=== PATIENT | female | born 1980 | race American Indian/Alaskan Native ===

== ENCOUNTER 2017-08-22 05:44 | Emergency (ER) | payer MEDICAID ==
[2017-08-22 05:49] VITALS: BP 119/68
--- NOTE | 2017-08-22 06:19 | Emergency Department Report ---
ED General Adult HPI - General Chief complaint: Sore Throat Stated complaint: SORE THROAT,VOMITING,BACK PAIN Time Seen by Provider: 08/22/17 06:12 Source: patient Mode of arrival: Ambulatory Limitations: No Limitations - History of Present Illness Initial comments: Patient is a 37-year-old -[place] female who presents for sore throat 2 weeks , Secondary complaint of dysuria frequency urgency 2 weeks patient denies fever states 3 sick kids in house similar symptoms dysphagia 4/10 there is no ear pain no shortness of breath no stridor no vaginal discharge and abdominal pain no nausea vomiting patient denies sexual contact there is no concern for STD. Last menstrual cycle 3 weeks ago. Onset/Timin -: week(s) Location: mouth, neck Radiation: non-radiation Severity scale (0 -10): 4 Quality: burning, sharp Consistency: intermittent Improves with: none Worsens with: other (swallowing ) Associated Symptoms: diaphoresis. denies: cough, fever/chills, loss of appetite , nausea/vomiting, shortness of breath, syncope, weakness Treatments Prior to Arrival: none - Related Data Home Medications Medication Instructions Recorded Confirmed Last Taken Vits62/FA/Om3/Dha/Epa 1 tab PO DAILY 08/11/13 09/12/13 09/09/13 [[facility]] 1 Previous Rx's Medication Instructions Recorded Last Taken Type Ferrous Sulfate [Feosol 325 MG tab] 325 mg PO BID #60 tablet 09/12/13 Unknown Rx HYDROcodone/APAP 5-325 [Neon 1 each PO Q6HR PRN #30 tablet 09/12/13 Unknown Rx 5/325] Ytf106/Iron Fum/Folic/Docusate 1 each PO QDAY #30 tablet 09/12/13 Unknown Rx [ 19 Tablet] Phenazopyridine [Pyridium] 200 mg PO PC #6 tablet 06/11/14 Unknown Rx Sulfamethoxazole/Trimethoprim 1 each PO BID #14 tablet 06/11/14 Unknown Rx [Bactrim Ds] Ibuprofen [Motrin 800 MG tab] 800 mg PO Q8H PRN #30 tablet 07/26/14 Unknown Rx Benzocaine/Menth/Cetylpyrd 8 each MM Q2H PRN #3 packet 08/22/17 Unknown Rx [Cepacol X Strength] Ibuprofen 800 mg PO TID PRN #30 tablet 08/22/17 Unknown Rx Sulfamethoxazole/Trimethoprim 1 each PO BID #20 tablet 08/22/17 Unknown Rx [Bactrim DS TAB] Allergies Allergy/AdvReac Type Severity Reaction Status Date / Time No Known Allergies Allergy Verified 08/23/13 02:20 ED Review of Systems ROS: Stated complaint: SORE THROAT,VOMITING,BACK PAIN Other details as noted in HPI Constitutional: denies: chills, fever ENT: throat pain, congestion Respiratory: see HPI. denies: orthopnea, SOB with exertion, wheezing Cardiovascular: denies: chest pain, palpitations, syncope, paroxysmal nocturnal dyspnea Endocrine: no symptoms reported Gastrointestinal: denies: abdominal pain, nausea, vomiting, diarrhea Genitourinary: urgency, dysuria, frequency. denies: hematuria, discharge, abnormal menses, dyspareunia Musculoskeletal: denies: back pain, joint swelling, arthralgia, myalgia Skin: denies: rash, lesions Neurological: denies: headache, weakness, numbness, paresthesias, confusion, abnormal gait, vertigo Psychiatric: denies: anxiety, depression Hematological/Lymphatic: denies: easy bleeding, easy bruising ED Past Medical Hx - Past Medical History Previous Medical History?: No Hx Hypertension: No Hx Congestive Heart Failure: No Hx Diabetes: No Hx Deep Vein Thrombosis: No Hx Renal Disease: No Hx Sickle Cell Disease: No Hx Seizures: No Hx Asthma: No Hx COPD: No Hx HIV: No - Surgical History Past Surgical History?: Yes Additional Surgical History: right ankle surgery, x 2 - Social History Smoking Status: Never Smoker Substance Use Type: None - Medications Home Medications: Home Medications Medication Instructions Recorded Confirmed Last Taken Type Vits62/FA/Om3/Dha/Epa 1 tab PO DAILY 08/11/13 09/12/13 09/09/13 History [[facility]] 1 Ferrous Sulfate [Feosol 325 MG tab] 325 mg PO BID #60 tablet 09/12/13 Unknown Rx HYDROcodone/APAP 5-325 [Neon 1 each PO Q6HR PRN #30 tablet 09/12/13 Unknown Rx 5/325] Yaw364/Iron Fum/Folic/Docusate 1 each PO QDAY #30 tablet 09/12/13 Unknown Rx [ 19 Tablet] Phenazopyridine [Pyridium] 200 mg PO PC #6 tablet 06/11/14 Unknown Rx Sulfamethoxazole/Trimethoprim 1 each PO BID #14 tablet 06/11/14 Unknown Rx [Bactrim Ds] Ibuprofen [Motrin 800 MG tab] 800 mg PO Q8H PRN #30 tablet 07/26/14 Unknown Rx Benzocaine/Menth/Cetylpyrd 8 each MM Q2H PRN #3 packet 08/22/17 Unknown Rx [Cepacol X Strength] Ibuprofen 800 mg PO TID PRN #30 tablet 08/22/17 Unknown Rx Sulfamethoxazole/Trimethoprim 1 each PO BID #20 tablet 08/22/17 Unknown Rx [Bactrim DS TAB] ED Physical Exam - General Limitations: No Limitations General appearance: alert, in no apparent distress - Head Head exam: Present: atraumatic, normocephalic - Eye Eye exam: Present: normal appearance - ENT ENT exam: Present: mucous membranes moist, TM's normal bilaterally, normal external ear exam - Expanded ENT Exam Expanded Mouth exam: Absent: trismus Throat exam: Negative: tonsillar erythema, tonsillomegaly, tonsillar exudate, R peritonsillar mass, L peritonsillar mass - Neck Neck exam: Present: normal inspection, full ROM. Absent: tenderness, lymphadenopathy, thyromegaly - Respiratory Respiratory exam: Present: normal lung sounds bilaterally. Absent: respiratory distress - Cardiovascular Cardiovascular Exam: Present: regular rate, normal rhythm. Absent: systolic murmur, diastolic murmur, rubs, gallop - GI/Abdominal GI/Abdominal exam: Present: soft, normal bowel sounds. Absent: distended, tenderness, guarding, rebound, rigid, organomegaly, mass, bruit, pulsatile mass , hernia - Rectal Rectal exam: Present: deferred - Extremities Exam Extremities exam: Present: normal inspection - Back Exam Back exam: Present: normal inspection, full ROM. Absent: tenderness, CVA tenderness (R), CVA tenderness (L), muscle spasm, paraspinal tenderness, vertebral tenderness, rash noted - Neurological Exam Neurological exam: Present: alert, oriented X3, normal gait, reflexes normal - Psychiatric Psychiatric exam: Present: normal affect, normal mood - Skin Skin exam: Present: warm, dry, intact, normal color. Absent: rash ED Course Vital Signs 08/22/17 08/22/17 05:43 05:46 Temperature 98.9 F 98.9 F Pulse Rate 86 88 Respiratory 18 18 Rate Blood Pressure 119/68 119/68 O2 Sat by Pulse 100 100 Oximetry ED Medical Decision Making - Lab Data Laboratory Tests 08/22/17 08/22/17 06:00 Unknown Urine Color Yellow Urine Turbidity Clear Urine pH 5.0 Ur Specific [place] 1.023 Urine Protein <15 mg/dl Urine Glucose (UA) Neg Urine Ketones Neg Urine Blood Neg Urine Nitrite Pos Urine Bilirubin Neg Urine Urobilinogen < 2.0 Ur Leukocyte Esterase Mod Urine WBC (Auto) 84.0 H Urine RBC (Auto) 3.0 U Epithel Cells (Auto) 8.0 Urine Mucus 2+ Urine HCG, Qual Negative Group A Strep Rapid Negative - Medical Decision Making rapid strep negative will treat for URI, HCG: neg, UA: nitrates, luek, wbc, Plan: tx with Rx for : follow up with [facility] in 2-3 days , return to ed if symptoms worsen, pt verbalized agreement and understanding of discharge plan, will dc to home in stable condition with rx for bactrim DS, ibuprofen,at this time. Critical care attestation.: If time is entered above; I have spent that time in minutes in the direct care of this critically ill patient, excluding procedure time. ED Disposition Clinical Impression: UTI (urinary tract infection) Qualifiers: Urinary tract infection type: acute cystitis Hematuria presence: without hematuria Qualified Code(s): N30.00 - Acute cystitis without hematuria URI (upper respiratory infection) Qualifiers: URI type: unspecified viral URI Qualified Code(s): J06.9 - Acute upper respiratory infection, unspecified Disposition: DC-01 TO HOME OR SELFCARE Is pt being admited?: No Does the pt Need Aspirin: No Condition: Good Instructions: Urinary Tract Infection in Women (ED) Prescriptions: Benzocaine/Menth/Cetylpyrd [Cepacol X Strength] 8 each MM Q2H PRN #3 packet PRN Reason: throat pain Ibuprofen 800 mg PO TID PRN #30 tablet PRN Reason: pain / fever Sulfamethoxazole/Trimethoprim [Bactrim DS TAB] 1 each PO BID #20 tablet Referrals: [facility] [Outside] - 3-5 Days Forms: Work/School Release Form(ED) Time of Disposition: 07:13
[2017-08-22 07:05] LABS: Bilirubin,Urine NEG (Negative); Blood,Urine NEG (Negative); Color,Urine Yellow (Yellow); HCG Qualitative,Urine Negative (Negative); Mucus,Urine 2+ /HPF; Protein,Urine <15 mg/dL mg/dL (Negative); Urobilinogen,Urine < 2.0 mg/dL (<2.0)
== END 2017-08-22 07:21 | disposition home or self-care (01) ==
LOC: ED 05:44
DX: N30.00 Acute cystitis without hematuria (principal); J06.9 Acute upper respiratory infection, unspecified; Z79.899 Other long term (current) drug therapy
CPT/HCPCS: 81001; 81025; 87116; 87430; 99283

== ENCOUNTER 2017-10-20 11:46 | Emergency (ER) | payer MEDICAID, MEDICARE ==
[2017-10-20 11:56] VITALS: BP 121/79
--- NOTE | 2017-10-20 13:43 | Emergency Department Report ---
ED Neck Pain/Injury HPI - General Chief Complaint: Chest Pain Stated Complaint: LEFT SIDE PAIN Time Seen by Provider: 10/20/17 13:18 Mode of arrival: Ambulatory Limitations: No Limitations - History of Present Illness Initial Comments: Patient is 37 years old female with no significant past medical history. Patient presented to the ER complaining of left neck pain. Patient stated that started immediately after she wake up from sleep this morning. She stated that she is having difficulty turning her neck to the left side. Patient denied any chest pain, shortness of breath or back pain. MD Complaint: neck pain -: This morning - Related Data Home Medications Medication Instructions Recorded Confirmed Last Taken Vits62/FA/Om3/Dha/Epa 1 tab PO DAILY 08/11/13 09/12/13 09/09/13 [[facility]] 1 Previous Rx's Medication Instructions Recorded Last Taken Type Ferrous Sulfate [Feosol 325 MG tab] 325 mg PO BID #60 tablet 09/12/13 Unknown Rx HYDROcodone/APAP 5-325 [[place] 1 each PO Q6HR PRN #30 tablet 09/12/13 Unknown Rx 5/325] Laj862/Iron Fum/Folic/Docusate 1 each PO QDAY #30 tablet 09/12/13 Unknown Rx [ 19 Tablet] Phenazopyridine [Pyridium] 200 mg PO PC #6 tablet 06/11/14 Unknown Rx Sulfamethoxazole/Trimethoprim 1 each PO BID #14 tablet 06/11/14 Unknown Rx [Bactrim Ds] Ibuprofen [Motrin 800 MG tab] 800 mg PO Q8H PRN #30 tablet 07/26/14 Unknown Rx Benzocaine/Menth/Cetylpyrd 8 each MM Q2H PRN #3 packet 08/22/17 Unknown Rx [Cepacol X Strength] Ibuprofen 800 mg PO TID PRN #30 tablet 08/22/17 Unknown Rx Sulfamethoxazole/Trimethoprim 1 each PO BID #20 tablet 08/22/17 Unknown Rx [Bactrim DS TAB] Allergies Allergy/AdvReac Type Severity Reaction Status Date / Time No Known Allergies Allergy Verified 08/23/13 02:20 ED Review of Systems ROS: Stated complaint: LEFT SIDE PAIN Other details as noted in HPI Comment: All other systems reviewed and negative Constitutional: denies: chills, fever Cardiovascular: denies: chest pain, palpitations, dyspnea on exertion Gastrointestinal: denies: abdominal pain, nausea, vomiting Musculoskeletal: denies: back pain Neurological: denies: headache, weakness, numbness ED Past Medical Hx - Past Medical History Previous Medical History?: No Hx Hypertension: No Hx Congestive Heart Failure: No Hx Diabetes: No Hx Deep Vein Thrombosis: No Hx Renal Disease: No Hx Sickle Cell Disease: No Hx Seizures: No Hx Asthma: No Hx COPD: No Hx Dementia: No Hx HIV: No - Surgical History Past Surgical History?: Yes Additional Surgical History: right ankle surgery, x 2 - Social History Smoking Status: Never Smoker Substance Use Type: None - Medications Home Medications: Home Medications Medication Instructions Recorded Confirmed Last Taken Type Vits62/FA/Om3/Dha/Epa 1 tab PO DAILY 08/11/13 09/12/13 09/09/13 History [[facility]] 1 Ferrous Sulfate [Feosol 325 MG tab] 325 mg PO BID #60 tablet 09/12/13 Unknown Rx HYDROcodone/APAP 5-325 [[place] 1 each PO Q6HR PRN #30 tablet 09/12/13 Unknown Rx 5/325] Dby589/Iron Fum/Folic/Docusate 1 each PO QDAY #30 tablet 09/12/13 Unknown Rx [ 19 Tablet] Phenazopyridine [Pyridium] 200 mg PO PC #6 tablet 06/11/14 Unknown Rx Sulfamethoxazole/Trimethoprim 1 each PO BID #14 tablet 06/11/14 Unknown Rx [Bactrim Ds] Ibuprofen [Motrin 800 MG tab] 800 mg PO Q8H PRN #30 tablet 07/26/14 Unknown Rx Benzocaine/Menth/Cetylpyrd 8 each MM Q2H PRN #3 packet 08/22/17 Unknown Rx [Cepacol X Strength] Ibuprofen 800 mg PO TID PRN #30 tablet 08/22/17 Unknown Rx Sulfamethoxazole/Trimethoprim 1 each PO BID #20 tablet 08/22/17 Unknown Rx [Bactrim DS TAB] ED Physical Exam - General Limitations: No Limitations General appearance: alert, in no apparent distress - Head Head exam: Present: atraumatic, normocephalic, normal inspection - Eye Eye exam: Present: normal appearance - ENT ENT exam: Present: normal exam, normal orophraynx - Neck Neck exam: Present: normal inspection. Absent: tenderness, meningismus, full ROM (decrease in range of motion), lymphadenopathy, thyromegaly - Respiratory Respiratory exam: Present: normal lung sounds bilaterally. Absent: respiratory distress, wheezes, rales, rhonchi, stridor, chest wall tenderness, accessory muscle use, decreased breath sounds, prolonged expiratory - Cardiovascular Cardiovascular Exam: Present: regular rate, normal rhythm, normal heart sounds - GI/Abdominal GI/Abdominal exam: Present: soft, normal bowel sounds. Absent: distended, tenderness, guarding, rebound, rigid, organomegaly, mass, bruit, pulsatile mass , hernia - Extremities Exam Extremities exam: Present: normal inspection, full ROM, normal capillary refill - Back Exam Back exam: Present: normal inspection, full ROM. Absent: CVA tenderness (L) - Neurological Exam Neurological exam: Present: alert, oriented X3, CN II-XII intact, normal gait, reflexes normal - Skin Skin exam: Present: warm, intact, normal color ED Course Vital Signs 10/20/17 10/20/17 10/20/17 11:53 16:25 16:26 Temperature 99.2 F Pulse Rate 92 H Respiratory 18 18 18 Rate Blood Pressure 121/79 O2 Sat by Pulse 100 Oximetry ED Medical Decision Making - Radiology Data Radiology results: image reviewed interpreted by me: Cervical spine x-ray is negative for acute finding. Critical care attestation.: If time is entered above; I have spent that time in minutes in the direct care of this critically ill patient, excluding procedure time. ED Disposition Clinical Impression: Neck pain, Neck muscle spasm Disposition: - TO HOME OR SELFCARE Is pt being admited?: No Condition: Stable Instructions: Muscle Spasm (ED), Cervical Sprain (ED) Referrals: PRIMARY CARE,MD [Primary Care Provider] - 3-5 Days
[2017-10-20 14:06] LABS: HCG Qualitative,Urine Negative (Negative)
[2017-10-20 14:11] LABS: Bilirubin,Urine NEG (Negative); Blood,Urine MOD (Negative); Color,Urine Red (Yellow); Mucus,Urine 2+ /HPF; Urobilinogen,Urine < 2.0 mg/dL (<2.0)
[2017-10-20 14:13] LABS: RBC,Urine > 182.0 /HPF (0.0-6.0)
[2017-10-20] MEDS ORDERED: MOTRIN PO ONE (16:08)
--- NOTE | 2017-10-20 18:24 | XRay Report ---
FINAL REPORT EXAM: XR SPINE CERVICAL 2-3V HISTORY: neck injury upt ordered TECHNIQUE: AP, lateral , swimmer's, and odontoid views of the cervical spine PRIORS: None. FINDINGS: C7 is visualized on the swimmer's view. There is linear lucency through the anterior spur at the inferior corner of C4. Findings suggest acute fracture of a spur. The other vertebral body heights and disc spaces are well maintained. The alignment is normal. No doubt significant prevertebral soft tissue swelling is seen. The odontoid is intact. IMPRESSION: Acute fracture of a spur involving the anterior inferior corner of C4. Otherwise, no acute abnormality noted.
== END 2017-10-20 16:49 | disposition home or self-care (01) ==
LOC: ED 11:46
DX: M54.2 Cervicalgia (principal); M62.838 Other muscle spasm
CPT/HCPCS: 72040; 81001; 81025; 93005; 93010; 99283